=== PATIENT | female | born 1965 | race Caucasian/White ===

== ENCOUNTER 2020-12-01 12:44 | Emergency (ER) | payer OTHER ==
[~2020-12-01] VITALS: Ht 154.9 cm; Wt 68.0 kg
[2020-12-01] MEDS ORDERED: AMOX-CLAV 875-1 EACH PO (15:18)
[2020-12-01] MEDS ORDERED: KETO10TA2 PO (15:18)
== END 2020-12-01 15:26 | disposition home or self-care (01) ==
LOC: ER 12:44
DX: H60.8X1 Other otitis externa, right ear (principal)